=== PATIENT | male | born 1990 | race Caucasian/White ===

== ENCOUNTER → 2021-04-06 | Outpatient (CLI) | payer BC | LOC: COL.RAD 09:13 | DX: M48.02 Spinal stenosis, cervical region (principal); M50.30 Other cervical disc degeneration, unspecified cervical region | CPT/HCPCS: A9585 ==

== ENCOUNTER → 2021-08-26 | Outpatient (CLI) | payer BC | LOC: COL.RAD 07:40 | DX: R10.30 Lower abdominal pain, unspecified (principal) ==